=== PATIENT | male | born 1985 | race African-American/Black ===

== ENCOUNTER 2017-04-17 01:40 | Inpatient (IN) | payer OTHER, MEDICARE ==
[~2017-04-17] VITALS: Ht 180.3 cm; Wt 76.7 kg
--- NOTE | 2017-04-17 01:40 | NUR ---
Patient was BIBA at this time.
[2017-04-17 01:43] VITALS: BP 113/70
--- NOTE | 2017-04-17 02:44 | NUR ---
Patient ambulated to bed 04.
--- NOTE | 2017-04-17 02:55 | NUR ---
31 Y/O M BIBA W/C/O AMS, FOUND AT A [facility] ACTING IRRATIC WITH INAPPROPRIATE SPEECH, RELEASED FROM [facility] TODAY AFTER LUNCH PER PATIENT. PT REFUSES TO COMUNICATE. VSS, ER MADE AWARE. HX OF SCHIZOPHRENIA, BIPOLAR
[2017-04-17 03:12] LABS: BASOPHILS # (AUTO) 0.3 K/uL (0.00-0.22); BASOPHILS % (AUTO) 3.2 % (0.0-2.0); EOSINOPHILS # (AUTO) 0.1 K/uL (0-0.4); EOSINOPHILS % (AUTO) 1.2 % (0.0-4.0); HEMATOCRIT 38.5 % (36-52); HEMOGLOBIN 12.6 g/dL (12.0-18.0); LYMPHOCYTES # (AUTO) 1.3 K/uL (2.0-11.5); LYMPHOCYTES % (AUTO) 15.5 % (20.5-51.1); MEAN CORPUSCULAR HEMOGLOBIN 28 pg (27-31); MEAN CORPUSCULAR HGB CONC 33 g/dL (33-37); MEAN CORPUSCULAR VOLUME 86 fL (80-94); MONOCYTES # (AUTO) 0.7 K/uL (0.8-1.0); MONOCYTES % (AUTO) 8.3 % (1.7-9.3); NEUTROPHILS # (AUTO) 5.8 K/uL (1.8-7.7); NEUTROPHILS % (AUTO) 71.8 % (42.2-75.2); PLATELET COUNT (AUTO) 246 K/uL (140-450); RED BLOOD CELL COUNT(AUTO) 4.48 MIL/uL (4.20-6.10); WHITE BLOOD COUNT (AUTO) 8.2 K/uL (4.8-10.8)
--- NOTE | 2017-04-17 03:15 | NUR ---
[place] [employer] EVALUATING PT AT BEDSIDE.
[2017-04-17 03:24] LABS: CARBON DIOXIDE 32.3 mmol/L (21-32); CHLORIDE 102 mmol/L (98-107); CREATININE 0.9 mg/dL (0.7-1.3); GFR ARICAN-AMERICAN 127 mL/min (>90); GLUCOSE 119 mg/dL (74-106); POTASSIUM 4.3 mmol/L (3.5-5.1); SODIUM SERUM 139 mmol/L (136-145); UREA NITROGEN, BLOOD 16 mg/dL (7-18)
[2017-04-17 03:31] LABS: ALBUMIN 4.3 g/dL (3.4-5.0); ASPARTATE AMINOTRANSFERASE 37 U/L (15-37); SALICYLATE 3.1 mg/dL (2.8-20.0); TOTAL BILIRUBIN 0.3 mg/dL (0.0-1.0)
[2017-04-17 03:34] LABS: ACETAMINOPHEN < 0.5 ug/ml (10-30)
[2017-04-17 04:13] LABS: APPEARANCE,URINE CLEAR (CLEAR); BILIRUBIN,URINE NEGATIVE (NEGATIVE); BLOOD, URINE NEGATIVE (NEGATIVE); COLOR,URINE YELLOW (YELLOW); LEUKOCYTE ESTERASE ,URINE NEGATIVE (NEGATIVE); NITRITE, URINE NEGATIVE (NEGATIVE); UGLUCOSE NEGATIVE (NEGATIVE)
[2017-04-17 04:19] LABS: BARBITURATE, URINE NEG. ng/ml (NEG <=200); BENZODIAZEPINE, URINE NEG. ng/mL (NEG <=200); CANNABINOID, URINE POS. ng/mL (NEG <=50); COCAINE, URINE NEG. ng/mL (NEG <=300); OPIATE, URINE NEG. ng/mL (NEG <=2000); PHENCYCLIDINE SCREEN,URINE NEG. ng/mL (NEG <=25)
[2017-04-17] MEDS ORDERED: ACETAMINOPHEN 325 MG TAB PO PRN (04:30)
[2017-04-17] MEDS ORDERED: DOCUSATE SODIUM 100 MG GELCAP PO PRN (04:30)
[2017-04-17] MEDS ORDERED: HYDROcodone/APAP 7.5/325 MG 1 TAB PO PRN (04:30)
[2017-04-17] MEDS ORDERED: ONDANSETRON 4 MG/2 ML VIAL IM/IVP PRN (04:30)
[2017-04-17] MEDS ORDERED: MORPHINE SULFATE 2 MG/ML SYR IVP PRN (04:30)
--- NOTE | 2017-04-17 04:37 | NUR ---
PT TRAFERED TO FLOOR BY CHARGE NURSE VIA CARIN.
--- NOTE | 2017-04-17 04:40 | NUR ---
Patient will be admitted to care of DR CID. Admited to TELEMETRY. Will go to room 110. Belongings list completed. Report to SARA CRANE AT BEDSIDE BY CHARGE NURSEJEN..
--- NOTE | 2017-04-17 04:57 | NUR ---
RECEIVED FROM ER PER SONIA AWAKE AND ALERT. NO SOB. NO RESTLESSNESS NOTED. PT. WITH IVF SITE TO LAC#20. DX. OF ACUTE PSYCHOSIS. SKIN INTACT. ABLE TO VERBALIZE WELL. ORIENTED TO CALL LIGHT USE AND CARE PLANS FOR THE DAY. RESIDENT IN HERE TO SEE PT.
[2017-04-17 05:15] LABS: PROTHROMBIN TIME 11.2 secs (10.8-13.4)
[2017-04-17] MEDS ORDERED: QUEtiapine FUMARATE 25 MG TAB PO SCH (05:30)
[2017-04-17 05:32] LABS: CHOL/HDL RATIO 2.1 (1-4.5); FREE T4 (FREE THYROXINE) 1.19 ng/dL (0.76-1.46); MAGNESIUM 2.1 mg/dL (1.8-2.4); PHOSPHORUS 4.9 mg/dL (2.5-4.9); THYROID STIMULATING HORMONE 1.44 uIU/mL (0.34-3.74)
[2017-04-17 05:54] VITALS: BP 118/80
--- NOTE | 2017-04-17 06:14 | NUR ---
ALTON FOR 529 NOT ADMINISTERED RT PER MD /RESIDENT CLAIRE TO GIVE IT AT 9 AM TO START. "I WILL CHANGE THE TIMING "
[2017-04-17] MEDS ORDERED: QUEtiapine FUMARATE 100 MG TAB PO SCH ×3 (06:40→18:00)
--- NOTE | 2017-04-17 07:07 | NUR ---
ENDORSED TO THE AM RN FOR CONTINUITY OF CARE. PT. SLEEPING BUT WAKES UP EASILY WHEN CALLED BY NAME AND TOUCHED.
--- NOTE | 2017-04-17 07:10 | NUR ---
RECEIVED PATIENT REPORT AT BEDSIDE FROM NIGHT NURSE. WHEN SPEAKING TO PATIENT, PATIENT'S WORDING WAS INAPPROPRIATE AND UNABLE TO COMPREHEND. PATIENT WAS ASKED, " HOW ARE YOU DOING THIS MORNING?" PATIENT HAD A DELAYED REPLY AND SAID, "[id number]". PATIENT IS ALERT, AWAKE, AND IS AROUSABLE TO NAME. PATIENT DOES FOLLOW COMMANDS. PATIENT SKIN IS INTACT. PATIENT THEN COVERED HIS BODY FROM HEAD TO TOE WITH SHEET. IV WAS NOTED ON THE R AC SL. PATIENT HAS NO C/O PAIN. PATIENT ON TELE MONITOR, BED LOWERED, AND CALL LIGHT WITHIN REACH. WILL CONTINUE TO MONITOR.
[2017-04-17 08:09] VITALS: BP 109/57
--- NOTE | 2017-04-17 08:43 | NUR ---
PATIENT HAS BEEN SCREENED AND CATEGORIZED MODERATE NUTRITION RISK. PATIENT WILL BE SEEN WITHIN 3-5 DAYS OF ADMISSION. 04/19/17-04/21/[address]
--- NOTE | 2017-04-17 09:17 | NUR ---
ADMINISTERED SEROQUEL 100 MG PO ONCE ORDER. PATIENT TOLERATED ACTIVITY WELL. PATIENT IS AAOX2 TO NAME AND PLACE. PATIENT'S WORDING IS MORE APPROPRIATE AT THIS TIME. PATIENT WAS EDUCATED ON POC FOR TODAY AND VERBALIZED UNDERSTANDING. PATIENT WENT BACK TO SLEEP AND SHOWS NO S/S OF ACUTE DISTRESS ON ROOM AIR.
--- NOTE | 2017-04-17 10:30 | NUR ---
SPOKE WITH DR LONDON AND CONFIRMED HE WILL BE SEEING PATIENT TODAY OR ONE OF HIS INTERNS.
--- NOTE | 2017-04-17 11:15 | NUR ---
PATIENT IS SLEEPING AND SHOWS NO S/S OF ACUTE DISTRESS ON ROOM AIR. WILL CONTINUE TO MONITOR.
[2017-04-17 11:52] VITALS: BP 100/58
--- NOTE | 2017-04-17 12:33 | NUR ---
PATIENT SAT UP IN BED AND IS TALKING WITH [employer]. PATIENT IS ALERT AND AWAKE AND SHOWS NO S/S OF ACUTE DISTRESS ON ROOM AIR. WILL CONTINUE TO MONITOR.
--- NOTE | 2017-04-17 13:00 | NUR ---
RECEIVED CALL FROM LAB ABOUT STANDING ORDER FOR MRSA NARES SWAB. PER NIGHT NURSE PT HAD REFUSED MRSA PROTOCOL SWAB. I ASKED PATIENT IF HE WOULD ALLOW ME TO PERFORM NOSE SWAB TO DETECT MRSA OF THE NARES. WHILE EXPLAINING PROS AND CONS OF RECEIVING NOSE SWAB PATIENT LOOK DOWN AND DID NOT ANSWER TO CONFIRM IT WAS OKAY TO PERFORM NOSE SWAB. WILL TRY AGAIN AT A LATER TIME. LAB IS AWARE.
--- NOTE | 2017-04-17 14:30 | NUR ---
PATIENT IS SLEEPING AND SHOWS NO S/S OF ACUTE DISTRESS ON ROOM AIR. THE BED IS LOWERED WITH CALL LIGHT WITHIN REACH.
--- NOTE | 2017-04-17 15:00 | NUR ---
GAVE PATIENT REPORT TO JASMEET RUIZ. PATIENT ENDORSED IN STABLE CONDITION.
--- NOTE | 2017-04-17 15:05 | NUR ---
RECEIVED PT IN BED. ASLEEP. AROUSABLE TO VOICE. ALERT ORIENTEDX4. NO SOB NOTED. DENIES ANY PAIN OR DISCOMFORT AT THIS TIME. SAFETY PRECAUTION IN PLACE. CALL LIGHT WITHIN REACH.
[2017-04-17 16:00] VITALS: BP 112/51
--- NOTE | 2017-04-17 17:02 | NUR ---
CALLED PHARMACIST SPOKE WITH LESLY REGARDING DUE MEDICATION SEROQUEL, THAT ON THE PYXIS ITS SCHEDULED FOR 2100 AND ON THE COMPUTER ITS 1700. PER PHARMACIST LESLY JUST FOLLOW SCHEDULED DOSE ON PYXIS AT 2100. WILL ENDORSE TO NEXT SHIFT TONIGHT.
--- NOTE | 2017-04-17 18:59 | NUR ---
PT KEPT CLEAN, DRY AND COMFORTABLE, NEEDS ATTENDED. NO SOB NOTED. DENIES ANY PAIN OR DISCOMFORT AT THIS TIME. WILL ENDORSE TO NEXT SHIFT FOR CONTINUITY OF CARE, PT ON STABLE CONDITION.
--- NOTE | 2017-04-17 19:10 | NUR ---
RECEIVED PT SLEEPING, EASILY AROUSABLE, AAOX4, CALM AT THIS TIME, VITAL SIGNS STABLE, WENT BACK TO SLEEP, SAFETY MEASURES IN PLACE, CALL LIGHT WITHIN REACH.
[2017-04-17 20:00] VITALS: BP 105/54
[2017-04-17] MEDS: QUEtiapine FUMARATE 100 MG TAB PO SCH (20:21)
--- NOTE | 2017-04-17 20:25 | NUR ---
DUE SEROQUEL GIVEN WITH EDUCATION, SNACK PROVIDED PER REQUEST, CONSUMED 100%, ALL NEEDS ATTENDED.
--- NOTE | 2017-04-17 21:45 | NUR ---
PT VOIDING FREELY PER URINAL, MONITORED CLOSELY.
[2017-04-18] VITALS: BP 97/55
--- NOTE | 2017-04-18 | NUR ---
PT SLEEPING, EASILY AROUSABLE, COOPERATIVE, VITAL SIGNS STABLE, DENIES ANY PAIN, CONTINUE TO MONITOR CLOSELY.
[2017-04-18 04:00] VITALS: BP 103/54
--- NOTE | 2017-04-18 04:00 | NUR ---
PT SLEEPING, EASILY AROUSABLE, VITAL SIGNS STABLE, NO SIGNS OF PAIN, CONTINUE TO MONITOR CLOSELY.
--- NOTE | 2017-04-18 05:32 | NUR ---
PT REFUSE AM LAB DRAW, RISK AND BENEFITS EXPLAINED BUT PT STILL REFUSED, WILL ENDORSE TO AM SHIFT.
--- NOTE | 2017-04-18 06:00 | NUR ---
DR Dede RANGEL MADE AWARE OF PT REFUSING AM LAB DRAW, NO NEW ORDER, PT SLEEPING AT THIS TIME, NO SIGNS OF DISTRESS, SOCIAL SERVICE TO ARRANGE TX TO INPATIENT PSYCH FACILITY.
[2017-04-18 08:23] LABS: T4 (THYROXINE) 8.9 ug/dL (4.5-12.0)
--- NOTE | 2017-04-18 08:30 | NUR ---
PATIENT CARE ASSUMED FROM NIGHT NURSE. PATIENT IS AWAKE AND SITTING UP IN BED. WILL NOT OR SHAKE HEAD BUT DOES NOT ANSWER QUESTIONS VERBALLY. NO EVIDENCE OF PAIN OR DISCOMFORT NOTRD OR REPORTED AT THIS TIME. WILL CONTINUE TO MONITOR.
[2017-04-18 08:46] VITALS: BP 110/65
[2017-04-18] MEDS ORDERED: OLANZapine 5 MG TAB PO SCH (09:00)
[2017-04-18] MEDS: QUEtiapine FUMARATE 100 MG TAB PO SCH (09:53)
[2017-04-18 11:55] VITALS: BP 108/61
--- NOTE | 2017-04-18 12:17 | NUR ---
PATIENT REMAINS AWAKE AND RESTING QUIETLY IN BED. CONTINUES TO DENIES PAIN OR DISCOMFORT BY NODDING OR SHAKING HIS HEAD. NO EVIDENCE OF AUDITORY HALLUCINATIONS AT THIS TIME. WILL CONTINUE TO MONITOR
--- NOTE | 2017-04-18 13:52 | NUR ---
PATIENT REPORTS THAT HE IS A SMOKER AND THAT HE WOULD LIKE A NICOTINE PATCH. DR MADE AWARE AND PATCH ORDERED. ON ATTEMPTING TO ADMINISTER PATCH PATIENT REPORTS THAT HE DOSE NOT WANT THE PATCH BUT WANTS EITHER NICOTINE CQ OR NICOTINE STRIPS. PATIENT INFORMED THAT WE DO NOT CARRY THOSE BUT INSIST ON GETTING THE ABOVE. CHARGE NURSE MADE AWARE AND SPOKE TO PATIENT. JONNY TROTTER AND RIO SPOKE ASSESSED PATIENT.
[2017-04-18] MEDS ORDERED: NICOTINE TRANSD SYS 14 MG/24 HR PATCH TD SCH (14:00)
[2017-04-18] MEDS ORDERED: LORazepam 2 MG/ML VIAL IM/IVP PRN (14:05)
--- NOTE | 2017-04-18 15:13 | NUR ---
PATIENT BECOMING AGITATED TALKING LOUDLY AND SLAMMED ROOM DOOR. PATIENT GIVEN ATIVAN 1MG IV HE CONTINUED TO TALK LOUDLY SAYING HE DOES NOT WANT TO HEAR ANY VOICES COMING FROM "THE TV OR THE RADIO" AND THAT "ALL THESE PEOPLE TALKING TO HIM LIKE THEY KNOW HIM" NO TV OR RADIO ON IN PATIENTS ROOM AT ANY TIME THIS SHIFT. WILL CONTINUE TO MONITOR CLOSELY
[2017-04-18] MEDS ORDERED: OLAN5TAB30 PO (16:19)
[2017-04-18] MEDS ORDERED: QUET100T44 PO (16:19)
--- NOTE | 2017-04-18 16:19 | NUR ---
Social Service Note: I faxed inquiries to the following hospitals: [facility] : Per Larry, no beds available at this time. [facility] : Per Morelia, no beds available at this time. [facility] : Per Shavonne, no beds available at this time. [facility]: : Per Geraldine, no beds available at this time. [facility] : No answer, no answering machine. [facility]
[2017-04-18 16:38] VITALS: BP 127/70
--- NOTE | 2017-04-18 18:06 | NUR ---
PATIENT SEEN BY DR HUIZAR (PSY) AND CLEARED FOR D/C. PATIENT DISCHARGED HOME. IV REMOVED INTACT. PATIENT GIVEN INSTRUCTIONS REGARDING COUNSELING/MENTAL HEALTH PSYCHIATRIC PROGRAM AND ON ALCOHOL/SUBSTANCE ABUSE. PATIENT INFORMED EPIDEMIOLOGIST THAT HE WAS GOING HOME TO [place] BUT HAD NO WAY TO GET THERE, GIVEN BUS PASSES AND WRITTEN INSTRUCTIONS ON WHICH BUS TO TAKE OUTSIDE THE HOSPITAL AND THAT THE [facility]. PATIENT AMBULATED OUT OF HOSPITAL ACCOMPANIED BY STAFF AND DIRECTED THE WAY TO GET ON THE FIRST BUS. PATIENT TOOK ALL BELONGINGS WITH HIM.
[2017-04-19] MEDS ORDERED: NICOTINE TRANSD SYS 14 MG/24 HR PATCH TD SCH (09:00)
== END 2017-04-18 18:05 | disposition home or self-care (01) | DRG 917 ==
LOC: MED 01:40 → MTU 04:37
PROVIDERS: ADMIT Family Medicine; ATTEND Family Medicine
DX: T40.7X1A Poisoning by cannabis (derivatives), accidental (unintentional), initial encounter (principal); G92 Toxic encephalopathy; F20.0 Paranoid schizophrenia; F17.200 Nicotine dependence, unspecified, uncomplicated; F12.90 Cannabis use, unspecified, uncomplicated; F17.210 Nicotine dependence, cigarettes, uncomplicated; Z59.0 Homelessness; Z91.14 Patient's other noncompliance with medication regimen
CPT/HCPCS: 36415; 71010; 80053; 80305; 81003; 82140; 82150; 83036; 83690; 83735; 83880; 84100; 84436; 84439; 84443; 84479; 84484; 85025; 85610; 85730; 87081; 93005; 99285; G0480; G0482; J2060; Q0092